=== PATIENT | male | born 1985 ===

== ENCOUNTER 2019-12-17 08:55 | Emergency (ER) | payer OTHER ==
[~2019-12-17 08:55] MED LIST: MOTRIN IB200 MG PO
== END 2019-12-17 09:38 | disposition home or self-care (01) ==
LOC: ER 08:55
DX: S81.812D Laceration without foreign body, left lower leg, subsequent encounter (principal); F17.200 Nicotine dependence, unspecified, uncomplicated; W26.0XXD Contact with knife, subsequent encounter
CPT/HCPCS: 99281